=== PATIENT | female | born 1970 | race Hispanic/Latino ===

== ENCOUNTER 2021-03-24 00:40 | Emergency (ER) | payer BC ==
[~2021-03-24] VITALS: Ht 152.4 cm; Wt 59.0 kg
[2021-03-24] MEDS ORDERED: ONDANSETRON 4MG INJ IVP ONE (02:00)
[2021-03-24] MEDS ORDERED: MORPHINE 4 MG SYG IV ONE (02:00)
== END 2021-03-24 02:13 | disposition left against medical advice (07) ==
LOC: EDH 00:40
DX: R10.9 Unspecified abdominal pain (principal); Z53.21 Procedure and treatment not carried out due to patient leaving prior to being seen by health care provider